=== PATIENT | female | born 1960 | race Caucasian/White ===

== ENCOUNTER 2018-09-06 16:35 | Inpatient (IN) | payer MEDICAID ==
[~2018-09-06] VITALS: Ht 149.9 cm; Wt 63.8 kg
[2018-09-06] MEDS ORDERED: ALBUTEROL 0.083% (NEB) 2.5 MG/3 ML AMP HHN STA (16:49)
[2018-09-06] MEDS ORDERED: METHYLPREDNISOLONE 125 MG INJ IV ONE (17:00)
[2018-09-06] MEDS ORDERED: IPRATROPIUM (NEB) 0.5 MG/2.5 ML AMP INH ONE (17:00)
[2018-09-06] MEDS ORDERED: SIMV20TA PO (17:27)
[2018-09-06] MEDS ORDERED: ALBU8.5H8 INH (17:27)
[2018-09-06] MEDS ORDERED: GUAI-173 PO (17:28)
[2018-09-06] MEDS ORDERED: LOSA25TA12 PO (17:28)
[2018-09-06] MEDS ORDERED: AZIT250T13 PO (17:29)
[2018-09-06] MEDS ORDERED: ONDANSETRON 4 MG INJ IV PRN ×2 (19:00→21:30)
[2018-09-06] MEDS ORDERED: ACETAMINOPHEN 325 MG TAB PO PRN ×2 (19:00→21:30)
[2018-09-06] MEDS ORDERED: SOD CHLORIDE 0.9% 100 ML ONE (19:01)
[2018-09-06] MEDS ORDERED: IOHEXOL 100 ML ONE (19:01)
--- NOTE | 2018-09-06 19:03 | ERD ---
ER Documentation Chief Complaint Chief Complaint cough, short of breath x3mths, taking abx no relief HPI Patient is a 57-year-old female with asthma and hypertension who presents with shortness of breath. She said that she has had shortness of breath for the past 3 months. She has been to the urgent care multiple times and has been given prednisone, pro-air, and Zithromax. The patient is not getting better. She did get a flu shot this year. She said that her primary doctor is Dr. Butcher. Upon review of old medical records this is the patient's first visit to the emergency department. ROS All systems reviewed and are negative except as per history of present illness. Medications Home Meds Reported Medications Azithromycin* (Azithromycin*) 250 Mg Tablet, 250 MG PO DAILY, #4 TAB FINISHED 09-05-18 09/06/18 Guaifenesin* (Tussin*) 100 Mg/5 Ml Syrup, 100 MG PO Q6 PRN for COUGH, ML 09/06/18 Losartan Potassium* (Losartan Potassium*) 25 Mg Tablet, 25 MG PO DAILY, TAB 09/06/18 Albuterol Sulfate* (Proair HFA*) 8.5 Gm Hfa.aer.ad, 2 PUFF INH Q4H PRN for WHEEZING AND SOB, #1 INHALER 09/06/18 Simvastatin* (Zocor*) 20 Mg Tablet, 20 MG PO QHS, #30 TAB 09/06/18 Allergies Allergies: Coded Allergies: No Known Allergy (Unverified , 09/06/18) PMhx/Soc Medical and Surgical Hx: pt denies Surgical Hx History of Surgery: No Anesthesia Reaction: No Hx Respiratory Disorders: Yes (Bronchitis,PNA) Hx Miscellaneous Medical Probl: Yes (HTN,High cholesterol) Hx Alcohol Use: No Hx Substance Use: No Hx Tobacco Use: No Smoking Status: Never smoker FmHx Family History: No diabetes Physical Exam Vitals Vital Signs Date Temp Pulse Resp B/P (MAP) Pulse Ox O2 O2 Flow FiO2 Time Delivery Rate 09/06/18 97 119/69 98 Room Air 18:34 (86) 09/06/18 Nasal 2 17:40 Cannula 09/06/18 Nasal 2.0 17:40 Cannula 09/06/18 76 26 98 Nasal 3.0 17:38 Cannula 09/06/18 98.7 94 20 198/84 97 16:37 (122) Physical Exam Const: Moderate distress Head: Atraumatic Eyes: Normal Conjunctiva ENT: Normal External Ears, Nose and Mouth. Neck: Full range of motion. No meningismus. Resp: Tachypnea and expiratory wheezing in all lung [place] Cardio: Regular rate and rhythm, no murmurs Abd: Soft, non tender, non distended. Normal bowel sounds Skin: No petechiae or rashes Back: No midline or flank tenderness Ext: No cyanosis, or edema Neur: Awake and alert Psych: Normal Mood and Affect Result Diagram: 09/06/18 1700 [id number]/06/[id number] Results 24 hrs Laboratory Tests Test 09/06/18 17:00 09/06/18 17:21 White Blood Count 7.8 10^3/ul Red Blood Count 4.15 10^6/ul Hemoglobin 12.4 g/dl Hematocrit 37.3 % Mean Corpuscular Volume 89.9 fl Mean Corpuscular Hemoglobin 29.9 pg Mean Corpuscular Hemoglobin Concent 33.2 g/dl Red Cell Distribution Width 13.1 % Platelet Count 245 10^3/UL Mean Platelet Volume 9.7 fl Immature Granulocytes % 0.300 % Neutrophils % 49.4 % Lymphocytes % 29.2 % Monocytes % 8.8 % Eosinophils % 11.7 % Basophils % 0.6 % Nucleated Red Blood Cells % 0.0 /100WBC Immature Granulocytes # 0.020 10^3/ul Neutrophils # 3.9 10^3/ul Lymphocytes # 2.3 10^3/ul Monocytes # 0.7 10^3/ul Eosinophils # 0.9 10^3/ul Basophils # 0.1 10^3/ul Nucleated Red Blood Cells # 0.0 10^3/ul D-Dimer 500.45 ng/ml D-Dimer Comment Sodium Level 142 mmol/L Potassium Level 3.8 mmol/L Chloride Level 108 mmol/L Carbon Dioxide Level 24 mmol/L Anion Gap 10 Blood Urea Nitrogen 10 mg/dl Creatinine 0.87 mg/dl Est Glomerular Filtrat Rate mL/min > 60 mL/min Glucose Level 119 mg/dl Calcium Level 9.7 mg/dl Troponin I < 0.012 ng/ml POC Venous Lactate 2.4 mmol/L Current Medications Medications Dose Sig/Nat Start Time Status Last (Trade) Ordered Route PRN Stop Time Admin Dose Reason Admin 125 mg ONCE ONCE 09/06/18 DC 09/06/18 Methylprednis IV 17:00 17:49 olone Sodium 09/06/18 17:01 Succinate (Solu-Medrol) Albuterol 5 mg ONCE STAT 09/06/18 DC 09/06/18 (Proventil HHN 16:49 17:37 0.083% (Neb)) 09/06/18 16:50 Ipratropium 0.5 mg ONCE ONCE 09/06/18 DC 09/06/18 [place] INH 17:00 17:37 (Atrovent 09/06/18 17:01 0.02% (Neb)) Ondansetron 4 mg BRIDGE ORDER 09/06/18 HCl (Zofran PRN IV 19:00 Inj) NAUSEA AND/OR 09/07/18 18:59 VOMITING 650 mg ER BRIDGE 09/06/18 Acetaminophen PRN PO MILD 19:00 (Tylenol PAIN(1-3)OR 09/07/18 18:59 Tab) ELEVATED TEMP Procedures/MDM EKG read by me: Rate/Rhythm: Regular rate and rhythm at a normal rate Intervals: Normal Impression: No evidence of ischemia or arrhythmia Chest x-ray negative per radiology. CT angiogram of the chest is pending. Patient is a 57-year-old female with asthma and hypertension who presents with status asthmaticus. She is persistently wheezing despite treatment with pro- air, prednisone, and Zithromax. There is no pneumonia or pneumothorax. D-dimer was slightly elevated so CTA will be done to rule out pulmonary embolism. The patient will be admitted to the care of Dr. Reynolds from the panel team to a medical surgical bed. Troponin is negative and I doubt acute coronary syndrome. I doubt pneumonia, pneumothorax, or aortic dissection. The patient was treated with Solu-Medrol, albuterol, and Atrovent in the emergency department. Lactic acid is elevated but I do not see any sign of serious bacterial infection or sepsis. Critical Care: Time: 35 minutes excluding all billable procedures. Treatments/Evaluations: Close monitoring and treatment of unstable vital signs, cardiorespiratory, and neurologic status, while maintaining tight balance of fluid, respiratory, and cardiac interventions. Departure Diagnosis: Primary Impression: Status asthmaticus Asthma severity: unspecified severity Asthma persistence: unspecified Qualified Codes: J45.902 - Unspecified asthma with status asthmaticus Additional Impression: Shortness of breath Condition: Fair LULU DIAZ MD Sep 06, 2018 19:03
[2018-09-06 20:42] VITALS: Ht 149.9 cm; Wt 63.8 kg
[2018-09-06 20:49] VITALS: BP 170/84; PULSE 103; RESP 20
--- NOTE | 2018-09-06 21:00 | NUR ---
RECEIVED PT FROM ER,ALERT AND ORIENTED. DENIES PAIN,VS STABLE. KEPT ON O2 @ 2L/NC WITH WHEEZES NOTED ;NO SOB AT THIS TIME THOUGH. KEPT IN COMFORTABLE POSITION. ORIENTED TO ROOM SET UP. NEEDS ATTENDED. CALL LIGHT WITHIN REACH.
[2018-09-06] MEDS ORDERED: NACL 0.9% 3 ML SYG IV SCH (21:30)
[2018-09-06] MEDS ORDERED: ALBUTEROL/IPRATROPIUM (NEB) 3 ML AMP HHN PRN (21:30)
[2018-09-06] MEDS ORDERED: ALBUTEROL HFA 8 GM INHALER INH PRN (21:30)
--- NOTE | 2018-09-06 22:49 | NUR ---
ELEVATED LACTIC ACID @ 4.6, MADE DR. DOUGLAS AWARE WITH ORDER TO REPEAT LACTIC ACID 4H AFTER THE LAST DRAW. WILL REVIEW PT'S PROFILE. PT ASYMPTOMATIC. WILL MONITOR. CN AWARE.
--- NOTE | 2018-09-06 23:51 | HP ---
Date/Time of Note Date/Time of Note DATE: 09/06/18 TIME: 23:51 Assessment/Plan VTE Prophylaxis Pharmacological prophylaxis: heparin Lines/Catheters IV Catheter Type (from Nrs): Saline Lock Assessment/Plan Hospital Course 1. Asthma exacerbation -Supplemental oxygen, bronchodilators and steroid 2. Lactic acidosis -Chest x-ray, CTPA and UA negative for infectious process -will follow-up on urine culture and blood culture results -Trend lactate 3. Hypertension: BP was in acceptable range. Continue home meds, adjust as needed 4. Dyslipidemia: Continue statin Result Diagram: 09/06/18 1700 09/06/18 1700 Results 24hrs Laboratory Tests Test 09/06/18 17:00 09/06/18 17:21 09/06/18 21:54 White Blood Count 7.8 Red Blood Count 4.15 L Hemoglobin 12.4 Hematocrit 37.3 Mean Corpuscular Volume 89.9 Mean Corpuscular Hemoglobin 29.9 Mean Corpuscular Hemoglobin Concent 33.2 Red Cell Distribution Width 13.1 Platelet Count 245 Mean Platelet Volume 9.7 Immature Granulocytes % 0.300 Neutrophils % 49.4 Lymphocytes % 29.2 Monocytes % 8.8 Eosinophils % 11.7 H Basophils % 0.6 Nucleated Red Blood Cells % 0.0 Immature Granulocytes # 0.020 Neutrophils # 3.9 Lymphocytes # 2.3 Monocytes # 0.7 Eosinophils # 0.9 H Basophils # 0.1 Nucleated Red Blood Cells # 0.0 D-Dimer 500.45 H D-Dimer Comment Sodium Level 142 Potassium Level 3.8 Chloride Level 108 Carbon Dioxide Level 24 Anion Gap 10 Blood Urea Nitrogen 10 Creatinine 0.87 Est Glomerular Filtrat Rate mL/min > 60 Glucose Level 119 Calcium Level 9.7 Troponin I < 0.012 POC Venous Lactate 2.4 *H Lactic Acid Level 4.6 *H HPI/ROS Admit Date/Time Admit Date/Time Sep 06, 2018 at 18:41 Hx of Present Illness This is a 57-year-old female with a history of hypertension, asthma, dyslipidemia who presented to ER complaining of shortness of breath and wheezing. She said her symptoms started about 3 months ago with associated cough occasionally productive of whitish sputum. She said she went to urgent care about 3 times and were given different medications at different times without improvement in her symptoms in fact, she said the antibiotic that she was given last time made her symptoms worse. She was diagnosed with asthma about a year ago. She had visited urgent care and ER but she was never hospitalized for asthma. When she presented to ER oxygen saturation 97% on room air. Influenza A and B were negative. Chest x-ray and CTPA without acute findings PMH/Family/Social Past Medical History Medical History: other (See HPI) Medications Current Medications IV Flush (NS 3 ml) 3 ml PER PROTOCOL IV ; Start 09/06/18 at 21:30 Ondansetron HCl (Zofran Inj) 4 mg Q6H PRN IV NAUSEA AND/OR VOMITING; Start 09/06/18 at 21:30 Acetaminophen (Tylenol Tab) 650 mg Q6H PRN PO PAIN LEVEL 1-3 OR FEVER; Start 09/06/18 at 21:30 Heparin Sodium (Porcine) (Heparin (5000 Units/1ml)) 5,000 unit Q12 SC ; Start 09/07/18 at 09:00 Albuterol/ Ipratropium (Duoneb) 3 ml Q2H RESP THERAPY PRN HHN SHORTNESS OF BREATH; Start 09/06/18 at 21:30 Albuterol (Ventolin Hfa) 2 puff Q4H PRN INH WHEEZING AND SOB; Start 09/06/18 at 21:30 Guaifenesin (Robitussin Liquid Cup) 100 mg Q6 PRN PO COUGH; Start 09/06/18 at 21:30 Atorvastatin Calcium (Lipitor) 10 mg DAILY@21 PO ; Start 09/07/18 at 21:00 Coded Allergies: No Known Allergy (Unverified , 09/06/18) Past Surgical History Past Surgical Hx: other (See HPI) Family History Significant Family History: no pertinent family hx Social History Alcohol Use: none Smoking Status: Never smoker Drug Use: none Exam/Review of Systems Vital Signs Vitals Vital Signs Date Temp Pulse Resp B/P (MAP) Pulse Ox O2 O2 Flow FiO2 Time Delivery Rate 09/06/18 99.0 103 20 170/84 98 Nasal 2.0 20:49 (112) Cannula Exam Constitutional: alert, oriented, well developed Head: normocephalic, atraumatic Eyes: EOMI, PERRL Respiratory: wheezing Cardiovascular: other (Tachycardic regular rhythm) Gastrointestinal: soft, non-tender Extremities: normal pulses ARAVIND DOUGLAS MD Sep 06, 2018 23:51
[2018-09-07] VITALS: BP 127/64; PULSE 100; RESP 18
[2018-09-07] MEDS: GUAIFENESIN 20 MG/ML 5ML CUP PO PRN (00:31)
[2018-09-07] MEDS ORDERED: SOD CHLORIDE 0.9% 500 ML IV ONE (02:00)
[2018-09-07 02:01] VITALS: BP 116/60; PULSE 101; RESP 18
[2018-09-07] MEDS: LEVOFLOXACIN 500MG/D5W (PMX) 100 ML IVPB SCH (03:29)
--- NOTE | 2018-09-07 05:12 | NUR ---
STILL ELEVATED LACTIC ACID,DR. DOUGLAS AWARE WITH ORDERS MADE AND CARRIED OUT. BOLUS OF NS 500 ML AND ANTIBIOTICS GIVEN. SPECIMEN FOR UA AND C/S SENT. CONTINUED WITH HHN. PT FEELS BETTER AT THIS TIME. IMPROVED WHEEZING. PROVIDED ASSISTANCE. CALL LIGHT WITHIN REACH.
[2018-09-07] MEDS: LEVALBUTEROL (NEB) 0.63 MG/3 ML AMP HHN SCH ×6 (05:19→20:36)
[2018-09-07 07:26] VITALS: BP 139/80; PULSE 103; RESP 20
[2018-09-07] MEDS ORDERED: IPRATROPIUM (NEB) 0.5 MG/2.5 ML AMP ONE (07:52)
[2018-09-07] MEDS: IPRATROPIUM (NEB) 0.5 MG/2.5 ML AMP HHN SCH ×4 (08:14→20:36)
[2018-09-07] MEDS: METHYLPREDNISOLONE 125 MG INJ IV SCH (08:34)
[2018-09-07] MEDS: HEPARIN 5,000 UNIT/1 ML VIAL SC SCH ×2 (08:35→21:47)
[2018-09-07 12:00] VITALS: BP 138/76; PULSE 108
--- NOTE | 2018-09-07 12:20 | NUR ---
Lactic acid 6.3. HARLEEN Johnson notified. Started IV fluids NS at 100 cc/h. No fever, VS within acceptable range.Will continue to monitor.
[2018-09-07] MEDS ORDERED: SOD CHLORIDE 0.9% 1,000 ML IV SCH (12:30)
[2018-09-07 14:19] VITALS: BP 148/78; PULSE 108; RESP 20
--- NOTE | 2018-09-07 14:44 | PN ---
Date/Time of Note Date/Time of Note DATE: 09/07/18 TIME: 14:43 Assessment/Plan VTE Prophylaxis Risk score (from Ns)>0 risk: 2 SCD applied (from Ns): Yes Pharmacological prophylaxis: heparin Lines/Catheters IV [facility]from [facility] Saline Lock Assessment/Plan Hospital Course SUBJECTIVE: Dyspnea improved. Continues to have a productive cough. OBJECTIVE: Physical Exam General: Adequately build 57 year-old female lying in bed in no apparent distress. HEENT: Normocephalic, atraumatic. Eyes: Anicteric sclerae, conjunctivae clear. ENT: Nasal septum midline, oral mucosa moist. Neck supple, no JVD noticed. Respiratory: Bilateral expiratory wheezing. Diminished breath sounds. No use of accessory muscles of respiration. . Cardiovascular: S1, S2 heard. No murmurs or gallops. Abdomen: Soft, nontender, and nondistended. Bowel sounds positive in all 4 quadrants. Genitourinary: Deferred. Extremities: No cyanosis, no clubbing, no edema. Peripheral pulses palpable. Neurologic: Cranial nerves II through XII grossly intact. The patient is awake, alert, and oriented. Skin: Normal skin turgor. No skin rashes. Labs & Vitals per chart ASSESSMENT & PLAN 57-year-old female with comorbidities including asthma, hypertension, and dyslipidemia who came to the emergency room with chief complaint of dyspnea. The patient was initially evaluated at outpatient clinic with minimal improvement in symptoms. Therefore, the patient was admitted to inpatient setting for further treatment and evaluation. 1. Asthma exacerbation. -Continue inhaled bronchodilators and inhaled anticholinergics. -Continue tapering dose of steroids. -Antibiotics for any underlying acute tracheobronchitis. 2. Lactic acidosis. -Most probably type B lactic acidosis. -Etiology unclear. -Possibly secondary to use of inhaled beta agonists. -Trend lactate levels. 3. Essential hypertension. -Continue antihypertensives. 4. Dyslipidemia. -On statins. -Will hold statins, if this is possibly contributing to the patient's underlying lactic acidosis. 5. Fluids, electrolytes, and nutrition. -Low-cholesterol diet. 6. DVT prophylaxis. -Subcutaneous heparin. 7. Plan. -Continue inhaled bronchodilators and anticholinergics. -Continue tapering dose of steroids. -Await clinical improvement. The patient was seen in collaboration with Dr. Christianson. Result Diagram: 09/07/18 0444 09/07/18 0444 Results 24hrs Laboratory Tests Test 09/06/18 17:00 09/06/18 17:21 09/06/18 21:54 09/07/18 01:14 White Blood Count 7.8 Red Blood Count 4.15 L Hemoglobin 12.4 Hematocrit 37.3 Mean Corpuscular 89.9 Volume Mean Corpuscular 29.9 Hemoglobin Mean Corpuscular 33.2 Hemoglobin Concen t Red Cell 13.1 Distribution Width Platelet Count 245 Mean Platelet 9.7 Volume Immature 0.300 Granulocytes % Neutrophils % 49.4 Lymphocytes % 29.2 Monocytes % 8.8 Eosinophils % 11.7 H Basophils % 0.6 Nucleated Red 0.0 Blood Cells % Immature 0.020 Granulocytes # Neutrophils # 3.9 Lymphocytes # 2.3 Monocytes # 0.7 Eosinophils # 0.9 H Basophils # 0.1 Nucleated Red 0.0 Blood Cells # D-Dimer 500.45 H D-Dimer Comment Sodium Level 142 Potassium Level 3.8 Chloride Level 108 Carbon Dioxide 24 Level Anion Gap 10 Blood Urea 10 Nitrogen Creatinine 0.87 Est Glomerular > 60 Filtrat Rate mL/min Glucose Level 119 Calcium Level 9.7 Troponin I < 0.012 POC Venous 2.4 *H Lactate Lactic Acid Level 4.6 *H 4.9 *H Test 09/07/18 02:20 09/07/18 04:44 09/07/18 11:24 09/07/18 12:15 Urine Color YELLOW Urine Clarity CLEAR Urine pH 5.0 Urine Specific 1.038 H [place] Urine Ketones TRACE A Urine Nitrite NEGATIVE Urine Bilirubin NEGATIVE Urine NEGATIVE Urobilinogen Urine Leukocyte NEGATIVE Esterase Urine Microscopic 1 RBC Urine Microscopic 0 WBC Urine Bacteria FEW A Urine Hemoglobin 1+ H Urine Glucose 3+ H Urine Total NEGATIVE Protein White Blood Count 6.0 # Red Blood Count 4.15 L Hemoglobin 12.6 Hematocrit 37.3 Mean Corpuscular 89.9 Volume Mean Corpuscular 30.4 Hemoglobin Mean Corpuscular 33.8 Hemoglobin Concen t Red Cell 13.4 Distribution Width Platelet Count 233 Mean Platelet 10.3 Volume Immature 0.500 H Granulocytes % Neutrophils % 85.2 H Lymphocytes % 13.6 L Monocytes % 0.5 Eosinophils % 0.0 Basophils % 0.2 Nucleated Red 0.0 Blood Cells % Immature 0.030 Granulocytes # Neutrophils # 5.1 Lymphocytes # 0.8 Monocytes # 0.0 L Eosinophils # 0.0 Basophils # 0.0 Nucleated Red 0.0 Blood Cells # Sodium Level 139 Potassium Level 4.1 Chloride Level 106 Carbon Dioxide 20 L Level Anion Gap 13 Blood Urea 11 Nitrogen Creatinine 0.75 Est Glomerular > 60 Filtrat Rate mL/min Glucose Level 169 Lactic Acid Level 4.1 *H 6.3 *H Calcium Level 9.9 Phosphorus Level 3.5 Magnesium Level 2.0 Total Bilirubin 0.1 L Direct Bilirubin 0.00 Indirect 0.1 Bilirubin Aspartate Amino 32 Transf (AST/SGOT) Alanine 26 Aminotransferase (ALT/SGPT) Alkaline 61 Phosphatase Total Protein 8.1 Albumin 4.7 Globulin 3.40 H Albumin/Globulin 1.38 Ratio Blood Gas Blood arterial Specimen Source Arterial Blood 09/07/2018 1:10:2 Date Drawn 5 PM Arterial Blood pH 7.434 (Temp corrected) Arterial Blood 30.7 L pCO2 (Temp correct) Arterial Blood 63.2 L pO2 (Temp corrected) Arterial Blood 20.1 L HCO3 Arterial Blood -3.1 L Base Excess Arterial Blood 93.2 L Oxygen Saturation Emmanuel Test ACCEPTAB Arterial Blood Left Radial Gas Puncture Site Arterial 0.3 Blood Carboxyhemo globin Arterial Blood 0.3 Methemoglobin Blood Gas A-a O2 49.8 H Differential Oxyhemoglobin 92.6 L Percent Blood Gas 37.0 Temperature Blood Gas ROOM AIR Modality FiO2 21.0 Blood Gas TM Notified Whom Blood Gas 09/07/2018 1:19:5 Notified Time 5 PM Exam/Review of Systems Vital Signs Vitals Vital Signs Date Temp Pulse Resp B/P (MAP) Pulse Ox O2 O2 Flow FiO2 Time Delivery Rate 09/07/18 94 Nasal 13:43 Cannula 09/07/18 90 18 21 13:00 09/07/18 98.3 138/76 12:00 (96) Intake and Output 09/06/18 09/06/18 09/07/18 1515:00 23:00 07:00 IntakeIntake Total 240 ml 700 ml BalanceBalance 240 ml 700 ml Medications Medications Current Medications IV Flush (NS 3 ml) 3 ml PER PROTOCOL IV ; Start 09/06/18 at 21:30 Ondansetron HCl (Zofran Inj) 4 mg Q6H PRN IV NAUSEA AND/OR VOMITING; Start 09/06/18 at 21:30 Acetaminophen (Tylenol Tab) 650 mg Q6H PRN PO PAIN LEVEL 1-3 OR FEVER; Start 09/06/18 at 21:30 Heparin Sodium (Porcine) (Heparin (5000 Units/1ml)) 5,000 unit Q12 SC Last administered on 09/07/18at 08:35; Admin Dose 5,000 UNIT; Start 09/07/18 at 09:00 Albuterol/ Ipratropium (Duoneb) 3 ml Q2H RESP THERAPY PRN HHN SHORTNESS OF BREATH Last administered on 09/06/18at 23:52; Admin Dose 3 ML; Start 09/06/18 at 21:30 Albuterol (Ventolin Hfa) 2 puff Q4H PRN INH WHEEZING AND SOB; Start 09/06/18 at 21:30 Guaifenesin (Robitussin Liquid Cup) 100 mg Q6 PRN PO COUGH Last administered on 09/07/18 00:31; Admin Dose 100 MG; Start 09/06/18 at 21:30 Levalbuterol (Xopenex Neb) 0.63 mg Q4H RESP THERAPY HHN Last administered on 09/07/18at 12:58; Admin Dose 0.63 MG; Start 09/07/18 at 01:00 Ipratropium [place] (Atrovent 0.02% (Neb)) 0.5 mg Q4HWA RESP THERAPY HHN Last administered on 09/07/18 12:58; Admin Dose 0.5 MG; Start 09/07/18 at 09:00 Levofloxacin/ Dextrose 100 ml @ 100 mls/hr Q24H IVPB Last administered on 09/07/18 03:29; Admin Dose 100 MLS/HR; Start 09/07/18 at 02:00 Methylprednisolone Sodium Succinate (Solu-Medrol) 80 mg DAILY IV Last administered on 09/07/18 08:34; Admin Dose 80 MG; Start 09/07/18 at 09:00 Sodium Chloride 1,000 ml @ 100 mls/hr Q10H IV Last administered on 09/07/18at 12:47; Admin Dose 100 MLS/HR; Start 09/07/18 at 12:30; Stop 09/07/18 at 22:29 ROLANDO MONTE NP Sep 07, 2018 14:44
--- NOTE | 2018-09-07 16:49 | NUR ---
Lactic acid 4.6, Alex Nicole , [employer] DIVER notified. No new orders, patient is already on IV fluuds, on IV antibiotics. No fever, VS within acceptble range. Will continue to monitor.
[2018-09-07 19:58] VITALS: BP 145/72; PULSE 95; RESP 18
[2018-09-07] MEDS ORDERED: ATORVASTATIN 10 MG TAB PO SCH (21:00)
[2018-09-07] MEDS: AL HYDROX/MG HYDROX/SIMETH 30 ML CUP PO PRN (22:37)
[2018-09-07] MEDS: PANTOPRAZOLE (EC) 40 MG TAB PO SCH (22:37)
[2018-09-08] MEDS ORDERED: SOD CHLORIDE 0.9% 1,000 ML IV ONE (00:30)
[2018-09-08 01:33] VITALS: BP 116/72; PULSE 87; RESP 18
[2018-09-08] MEDS: LEVALBUTEROL (NEB) 0.63 MG/3 ML AMP HHN SCH ×6 (01:42→21:04)
[2018-09-08] MEDS: LEVOFLOXACIN 500MG/D5W (PMX) 100 ML IVPB SCH (02:37)
[2018-09-08] MEDS: GUAIFENESIN 20 MG/ML 5ML CUP PO PRN ×2 (03:54→20:43)
[2018-09-08] MEDS: AL HYDROX/MG HYDROX/SIMETH 30 ML CUP PO PRN ×2 (03:54→20:43)
--- NOTE | 2018-09-08 06:52 | NUR ---
re: shift note patient is alert and oriented, vss, no signs of distress noted. prn cough medication and mylanta given for acid reflux. lactic acid 5.0, bolus of ns given, pending recheck this am. good urine out. remains free from injury and falls. will continue to monitor.
[2018-09-08] MEDS: PANTOPRAZOLE (EC) 40 MG TAB PO SCH (07:02)
[2018-09-08 07:31] VITALS: BP 139/70; PULSE 89; RESP 20
[2018-09-08] MEDS: IPRATROPIUM (NEB) 0.5 MG/2.5 ML AMP HHN SCH ×4 (07:42→21:04)
--- NOTE | 2018-09-08 07:47 | NUR ---
re: lactic acid lactic acid trending down after bolus of ns. Dr. Boss notified of am lactic acid, repeat ordered at 10am.
[2018-09-08] MEDS: LOSARTAN 25 MG TAB PO SCH (08:58)
[2018-09-08] MEDS: METHYLPREDNISOLONE 125 MG INJ IV SCH (08:59)
[2018-09-08] MEDS: HEPARIN 5,000 UNIT/1 ML VIAL SC SCH ×2 (09:01→20:38)
--- NOTE | 2018-09-08 10:53 | CONS ---
Date/Time of Note Date/Time of Note DATE: 09/08/18 TIME: 10:49 Assessment/Plan Assessment/Plan Assessment/Plan Chest x-ray is unremarkable. Assessment recommendations; next 1. Patient admitted with a 3-month history of chest congestion and wheezing likely post viral bronchitis. 2. History of hypertension. Discontinue current Solu-Medrol dosing. Start Solu-Medrol 40 mg every 6 hours. Add Pulmicort 0.5 mg twice daily. Discontinue Levaquin and start oral Zithromax 500 mg daily. Continue current broncho dilator regimen. Result Diagram: 09/08/18 0514 09/08/1814 Results 24hrs Laboratory Tests Test 09/07/18 11:24 09/07/18 12:15 09/07/18 16:04 09/07/18 23:41 Lactic Acid Level 6.3 *H 4.6 *H 5.0 *H Blood Gas Blood arterial Specimen Source Arterial Blood 09/07/2018 1:10:2 Date Drawn 5 PM Arterial Blood pH 7.434 (Temp corrected) Arterial Blood 30.7 L pCO2 (Temp correct) Arterial Blood 63.2 L pO2 (Temp corrected) Arterial Blood 20.1 L HCO3 Arterial Blood -3.1 L Base Excess Arterial Blood 93.2 L Oxygen Saturation Emmanuel Test ACCEPTAB Arterial Blood Left Radial Gas Puncture Site Arterial 0.3 Blood Carboxyhemo globin Arterial Blood 0.3 Methemoglobin Blood Gas A-a O2 49.8 H Differential Oxyhemoglobin 92.6 L Percent Blood Gas 37.0 Temperature Blood Gas ROOM AIR Modality FiO2 21.0 Blood Gas TM Notified Whom Blood Gas 09/07/2018 1:19:5 Notified Time 5 PM Test 09/08/18 05:14 09/08/18 10:00 White Blood Count 16.4 #H Red Blood Count 3.72 L Hemoglobin 11.1 L Hematocrit 33.9 L Mean Corpuscular 91.1 Volume Mean Corpuscular 29.8 Hemoglobin Mean Corpuscular 32.7 Hemoglobin Concen t Red Cell 13.8 Distribution Width Platelet Count 233 Mean Platelet 10.0 Volume Immature 0.800 H Granulocytes % Neutrophils % 82.0 H Lymphocytes % 9.2 L Monocytes % 7.9 Eosinophils % 0.0 Basophils % 0.1 Nucleated Red 0.0 Blood Cells % Immature 0.130 H Granulocytes # Neutrophils # 13.4 H Lymphocytes # 1.5 Monocytes # 1.3 H Eosinophils # 0.0 Basophils # 0.0 Nucleated Red 0.0 Blood Cells # Sodium Level 143 Potassium Level 4.1 Chloride Level 112 H Carbon Dioxide 21 Level Anion Gap 10 Blood Urea 15 Nitrogen Creatinine 0.71 Est Glomerular > 60 Filtrat Rate mL/min Glucose Level 153 Lactic Acid Level 3.6 *H 4.8 *H Calcium Level 9.5 Phosphorus Level 2.7 Magnesium Level 2.2 Consultation Date/Type/Reason Admit Date/Time Sep 06, 2018 at 18:41 Date of Consultation: Sep 08, 2018 Type of Consult Pulmonary Patient is a very pleasant 57-year-old lady who came into the hospital with a 3- month history of coughing chest congestion wheezing and very scant sputum production. According to her she was fine until symptoms started 3 months ago. Patient denies any acute illness like episodes of high fever, body aches myalgias to suggest any viral infection. After being admitted patient has been started on appropriate bronchodilator regimen with significant improvement in symptoms. She still complains of coughing chest congestion. Denies any sinus symptoms, postnasal drip. Any fever or chills. Past medical history; 1. History of hypertension. 2. No history of any asthma. Medications; reviewed. Allergies; none. Social history; no show any smoking. Occupational history; patient is a information tech. PET/hobbies; patient has a dog in the house. Family history; she is , no show any illnesses in the family. Review of systems; denies any headache, sinus symptoms. Any sore throat. Any chest pain. Denies any wheezing. Complains of cough and chest congestion. Complains of scant white sputum production. Denies any high fever, chills, body aches or myalgias. Denies any abdominal pain, acid reflux. Any diarrhea, melena any urinary symptoms. Any orthopnea. Any edema. Complains of minimal shortness of breath upon exertion. Denies any weight loss. General exam; middle-aged female, awake alert, currently in no distress. Past Medical History Medical History: other (See HPI) Medications Current Medications IV Flush (NS 3 ml) 3 ml PER PROTOCOL IV ; Start 09/06/18 at 21:30 Ondansetron HCl (Zofran Inj) 4 mg Q6H PRN IV NAUSEA AND/OR VOMITING; Start 1/20/19 at 21:30 Acetaminophen (Tylenol Tab) 650 mg Q6H PRN PO PAIN LEVEL 1-3 OR FEVER; Start 09/06/18 at 21:30 Heparin Sodium (Porcine) (Heparin (5000 Units/1ml)) 5,000 unit Q12 SC Last administered on 09/08/18 09:01; Admin Dose 5,000 UNIT; Start 09/07/18 at 09:00 Albuterol/ Ipratropium (Duoneb) 3 ml Q2H RESP THERAPY PRN HHN SHORTNESS OF BREATH Last administered on 09/06/18 23:52; Admin Dose 3 ML; Start 09/06/18 at 21:30 Albuterol (Ventolin Hfa) 2 puff Q4H PRN INH WHEEZING AND SOB; Start 09/06/18 at 21:30 Guaifenesin (Robitussin Liquid Cup) 100 mg Q6 PRN PO COUGH Last administered on 09/08/18 03:54; Admin Dose 100 MG; Start 09/06/18 at 21:30 Levalbuterol (Xopenex Neb) 0.63 mg Q4H RESP THERAPY HHN Last administered on 09/08/18 07:42; Admin Dose 0.63 MG; Start 09/07/18 at 01:00 Ipratropium [place] (Atrovent 0.02% (Neb)) 0.5 mg Q4HWA RESP THERAPY HHN Last administered on 09/08/18 07:42; Admin Dose 0.5 MG; Start 09/07/18 at 09:00 Levofloxacin/ Dextrose 100 ml @ 100 mls/hr Q24H IVPB Last administered on 09/08/18 02:37; Admin Dose 100 MLS/HR; Start 09/07/18 at 02:00 Methylprednisolone Sodium Succinate (Solu-Medrol) 80 mg DAILY IV Last administered on 09/08/18 08:59; Admin Dose 80 MG; Start 09/07/18 at 09:00 Losartan Potassium (Cozaar) 25 mg DAILY PO Last administered on 09/08/18 08:58; Admin Dose 25 MG; Start 09/08/18 at 09:00 Pantoprazole (Protonix Tab) 40 mg DAILY@06 PO Last administered on 09/08/18 07:02; Admin Dose 40 MG; Start 09/07/18 at 22:30 Al Hydrox/Mg Hydrox/Simethicone (Mag-Al Plus) 30 ml Q4H PRN PO GASTROINTESTINAL UPSET Last administered on 09/08/18at 03:54; Admin Dose 30 ML; Start 09/07/18 at 22:30 Allergies: Coded Allergies: No Known Allergy (Unverified , 09/06/18) Past Surgical History Past Surgical Hx: other (See HPI) Social History Alcohol Use: none Smoking Status: Never smoker Drug Use: none Exam/Review of Systems Vital Signs Vitals Vital Signs Date Temp Pulse Resp B/P (MAP) Pulse Ox O2 O2 Flow FiO2 Time Delivery Rate 09/08/18 Nasal 2.0 09:00 Cannula 09/08/18 81 18 96 07:42 09/08/18 97.6 139/70 07:31 (93) 09/07/18 27 20:36 Intake and Output 09/07/18 09/07/18 09/08/18 1515:00 23:00 07:00 IntakeIntake Total 960 ml 1720 ml 1618 ml OutputOutput Total 300 ml BalanceBalance 660 ml 1720 ml 1618 ml Exam H HEENT exam; supple neck, no JVD. No lymphadenopathy. Midline trachea. No th yromegaly. Patient has fair dentition. No sinus tenderness. Nasal mucosa is moist without any inflammation. Pharynx is clear. Pupils are midsize and reactive to light. Chest exam; diminished breath sounds bilaterally with mildly prolonged expiratory phase. No wheezing. S1-S2 audible, no murmurs. Regular rhythm. Abdomen exam; soft, no organomegaly. Nontender. Bowel sounds audible. Extremity exam; peripheral edema clubbing. Pulses 1+. CABLE DRILLER exam; no focal deficit. Medications Medications Current Medications IV Flush (NS 3 ml) 3 ml PER PROTOCOL IV ; Start 09/06/18 at 21:30 Ondansetron HCl (Zofran Inj) 4 mg Q6H PRN IV NAUSEA AND/OR VOMITING; Start 09/06/18 at 21:30 Acetaminophen (Tylenol Tab) 650 mg Q6H PRN PO PAIN LEVEL 1-3 OR FEVER; Start 09/06/18 at 21:30 Heparin Sodium (Porcine) (Heparin (5000 Units/1ml)) 5,000 unit Q12 SC Last administered on 09/08/18 09:01; Admin Dose 5,000 UNIT; Start 09/07/18 at 09:00 Albuterol/ Ipratropium (Duoneb) 3 ml Q2H RESP THERAPY PRN HHN SHORTNESS OF BREATH Last administered on 09/06/18 23:52; Admin Dose 3 ML; Start 09/06/18 at 21:30 Albuterol (Ventolin Hfa) 2 puff Q4H PRN INH WHEEZING AND SOB; Start 09/06/18 at 21:30 Guaifenesin (Robitussin Liquid Cup) 100 mg Q6 PRN PO COUGH Last administered on 09/08/18 03:54; Admin Dose 100 MG; Start 09/06/18 at 21:30 Levalbuterol (Xopenex Neb) 0.63 mg Q4H RESP THERAPY HHN Last administered on 09/08/18 07:42; Admin Dose 0.63 MG; Start 09/07/18 at 01:00 Ipratropium [place] (Atrovent 0.02% (Neb)) 0.5 mg Q4HWA RESP THERAPY HHN Last administered on 09/08/18 07:42; Admin Dose 0.5 MG; Start 09/07/18 at 09:00 Levofloxacin/ Dextrose 100 ml @ 100 mls/hr Q24H IVPB Last administered on 09/08/18 02:37; Admin Dose 100 MLS/HR; Start 09/07/18 at 02:00 Methylprednisolone Sodium Succinate (Solu-Medrol) 80 mg DAILY IV Last administered on 09/08/18 08:59; Admin Dose 80 MG; Start 09/07/18 at 09:00 Losartan Potassium (Cozaar) 25 mg DAILY PO Last administered on 09/08/18 08:58; Admin Dose 25 MG; Start 09/08/18 at 09:00 Pantoprazole (Protonix Tab) 40 mg DAILY@06 PO Last administered on 09/08/18 07:02; Admin Dose 40 MG; Start 09/07/18 at 22:30 Al Hydrox/Mg Hydrox/Simethicone (Mag-Al Plus) 30 ml Q4H PRN PO GASTROINTESTINAL UPSET Last administered on 09/08/18 03:54; Admin Dose 30 ML; Start 09/07/18 at 22:30 NOVA ROSADO Sep 08, 2018 10:53
[2018-09-08] MEDS: METHYLPREDNISOLONE 40 MG INJ IV SCH ×2 (12:31→18:08)
--- NOTE | 2018-09-08 12:36 | PN ---
Date/Time of Note Date/Time of Note DATE: 09/08/18 TIME: 12:35 Assessment/Plan VTE Prophylaxis Risk score (from Ns)>0 risk: 2 SCD applied (from Ns): Yes Pharmacological prophylaxis: heparin Lines/Catheters IV C[facility]ter Type [facility]from [facility] [place] Assessment/Plan Hospital Course SUBJECTIVE: Dyspnea improved. Continues to have a productive cough. OBJECTIVE: Physical Exam General: Adequately build 57 year-old female lying in bed in no apparent distress. HEENT: Normocephalic, atraumatic. Eyes: Anicteric sclerae, conjunctivae clear. ENT: Nasal septum midline, oral mucosa moist. Neck supple, no JVD noticed. Respiratory: Diminished breath sounds. No use of accessory muscles of respiration. . Cardiovascular: S1, S2 heard. No murmurs or gallops. Abdomen: Soft, nontender, and nondistended. Bowel sounds positive in all 4 quadrants. Genitourinary: Deferred. Extremities: No cyanosis, no clubbing, no edema. Peripheral pulses palpable. Neurologic: Cranial nerves II through XII grossly intact. The patient is awake, alert, and oriented. Skin: Normal skin turgor. No skin rashes. Labs & Vitals per chart ASSESSMENT & PLAN 57-year-old female with comorbidities including asthma, hypertension, and dyslipidemia who came to the emergency room with chief complaint of dyspnea. The patient was initially evaluated at outpatient clinic with minimal improvement in symptoms. Therefore, the patient was admitted to inpatient setting for further treatment and evaluation. 1. Asthma exacerbation. -Continue inhaled bronchodilators and inhaled anticholinergics. -Continue tapering dose of steroids. -Antibiotics for any underlying acute tracheobronchitis. -Pulmonology following. 2. Lactic acidosis. -Most probably type B lactic acidosis. -Etiology unclear. -Possibly secondary to use of inhaled beta agonists. -Trend lactate levels. 3. Essential hypertension. -Continue antihypertensives. 4. Dyslipidemia. -On statins. -Will hold statins, if this is possibly contributing to the patient's underlying lactic acidosis. 5. Fluids, electrolytes, and nutrition. -Low-cholesterol diet. 6. DVT prophylaxis. -Subcutaneous heparin. 7. Plan. -Continue inhaled bronchodilators and anticholinergics. -Continue tapering dose of steroids. -Await clinical improvement. The patient was seen in collaboration with Dr. Christianson. Result Diagram: 09/08/18 0514 09/08/18 0514 Results 24hrs Laboratory Tests Test 09/07/18 16:04 09/07/18 23:41 09/08/18 05:14 09/08/18 10:00 Lactic Acid Level 4.6 *H 5.0 *H 3.6 *H 4.8 *H White Blood Count 16.4 #H Red Blood Count 3.72 L Hemoglobin 11.1 L Hematocrit 33.9 L Mean Corpuscular 91.1 Volume Mean Corpuscular 29.8 Hemoglobin Mean Corpuscular 32.7 Hemoglobin Concent Red Cell 13.8 Distribution Width Platelet Count 233 Mean Platelet Volume 10.0 Immature 0.800 H Granulocytes % Neutrophils % 82.0 H Lymphocytes % 9.2 L Monocytes % 7.9 Eosinophils % 0.0 Basophils % 0.1 Nucleated Red Blood 0.0 Cells % Immature 0.130 H Granulocytes # Neutrophils # 13.4 H Lymphocytes # 1.5 Monocytes # 1.3 H Eosinophils # 0.0 Basophils # 0.0 Nucleated Red Blood 0.0 Cells # Sodium Level 143 Potassium Level 4.1 Chloride Level 112 H Carbon Dioxide Level 21 Anion Gap 10 Blood Urea Nitrogen 15 Creatinine 0.71 Est Glomerular > 60 Filtrat Rate mL/min Glucose Level 153 Calcium Level 9.5 Phosphorus Level 2.7 Magnesium Level 2.2 Exam/Review of Systems Vital Signs Vitals Vital Signs Date Temp Pulse Resp B/P (MAP) Pulse Ox O2 O2 Flow FiO2 Time Delivery Rate 09/08/18 Nasal 2.0 09:00 Cannula 09/08/18 81 18 96 07:42 09/08/18 97.6 139/70 07:31 (93) 09/07/18 27 20:36 Intake and Output 09/07/18 09/07/18 09/08/18 1515:00 23:00 07:00 IntakeIntake Total 960 ml 1720 ml 1618 ml OutputOutput Total 300 ml BalanceBalance 660 ml 1720 ml 1618 ml Medications Medications Current Medications IV Flush (NS 3 ml) 3 ml PER PROTOCOL IV ; Start 09/06/18 at 21:30 Ondansetron HCl (Zofran Inj) 4 mg Q6H PRN IV NAUSEA AND/OR VOMITING; Start 09/06/18 at 21:30 Acetaminophen (Tylenol Tab) 650 mg Q6H PRN PO PAIN LEVEL 1-3 OR FEVER; Start 09/06/18 at 21:30 Heparin Sodium (Porcine) (Heparin (5000 Units/1ml)) 5,000 unit Q12 SC Last administered on 09/08/18 09:01; Admin Dose 5,000 UNIT; Start 09/07/18 at 09:00 Albuterol/ Ipratropium (Duoneb) 3 ml Q2H RESP THERAPY PRN HHN SHORTNESS OF BREATH Last administered on 09/06/18 23:52; Admin Dose 3 ML; Start 09/06/18 at 21:30 Albuterol (Ventolin Hfa) 2 puff Q4H PRN INH WHEEZING AND SOB; Start 09/06/18 at 21:30 Guaifenesin (Robitussin Liquid Cup) 100 mg Q6 PRN PO COUGH Last administered on 09/08/18 03:54; Admin Dose 100 MG; Start 09/06/18 at 21:30 Levalbuterol (Xopenex Neb) 0.63 mg Q4H RESP THERAPY HHN Last administered on 09/08/18 07:42; Admin Dose 0.63 MG; Start 09/07/18 at 01:00 Ipratropium [place] (Atrovent 0.02% (Neb)) 0.5 mg Q4HWA RESP THERAPY HHN Last administered on 09/08/18 07:42; Admin Dose 0.5 MG; Start 09/07/18 at 09:00 Losartan Potassium (Cozaar) 25 mg DAILY PO Last administered on 09/08/18 08: 58; Admin Dose 25 MG; Start 09/08/18 at 09:00 Pantoprazole (Protonix Tab) 40 mg DAILY@06 PO Last administered on 09/08/18 07:02; Admin Dose 40 MG; Start 09/07/18 at 22:30 Al Hydrox/Mg Hydrox/Simethicone (Mag-Al Plus) 30 ml Q4H PRN PO GASTROINTESTINAL UPSET Last administered on 09/08/18 03:54; Admin Dose 30 ML; Start 09/07/18 at 22:30 Azithromycin (Zithromax) 500 mg DAILY PO ; Start 09/08/18 at 12:00 Methylprednisolone Sodium Succinate (Solu-Medrol) 40 mg Q6 IV ; Start 09/08/18 at 12:00 Budesonide (Pulmicort (Neb)) 0.5 mg BID RESP THERAPY N ; Start 09/08/18 at 11:00 ROLANDO MONTE NP Sep 08, 2018 12:36
[2018-09-08] MEDS: BUDESONIDE (NEB) 0.5MG/2ML AMP HHN SCH ×2 (13:28→21:04)
[2018-09-08] MEDS: AZITHROMYCIN 250 MG TAB PO SCH (13:34)
[2018-09-08 14:06] VITALS: BP 147/77; PULSE 91; RESP 20
--- NOTE | 2018-09-08 18:24 | NUR ---
End of shift summary: Pt alert and oriented X4, able to ambulate by self, able to communicate needs. No c/o pain or distress during the shift. Lactic acid trending up. ASSOCIATE PRODUCT MANAGER Alex was made aware. Dr Tripp's consult obtained. No new orders as of now. Continue to monitor.
--- NOTE | 2018-09-08 18:57 | CONS ---
DATE OF ADMISSION: 09/06/2018 DATE OF CONSULTATION: 09/08/2018 TYPE OF CONSULTATION: Nephrology. REASON FOR CONSULTATION: Lactic acidosis. PHYSICIAN REQUESTING CONSULT: Alex Nicole NP HISTORY OF PRESENT ILLNESS: This is a 57-year-old female with a past medical history of hypertension , history of asthma, dyslipidemia, presented to [facility] Emergency Room with shortness of breath, wheezing. The patient stated her symptoms started about 3 months ago with cough with whitish sputum. The patient says she went to urgent care multiple times and was given antibiotics without s ignificant improvement. As a result, the patient came to emergency room. Upon arrival, the patient was saturating 97% on room air. The patient had a chest x-ray, CT angio that showed no acute finding . The patient was subsequently admitted to med/surg and placed on steroids, beta agonist with margin al improvement in symptoms. The patient continues to have shortness of breath. In terms of the patient's lactic acidosis History, on admission the patient was noted to have lactic acidosis of 4.6, which is hovered between 4 and 6 millimoles per liter. The patient has been given I V fluids without significant change in lactic acidosis. An ABG was performed which showed the patien t is compensated. The patient herself denies any prior history of cancer. Denies any history of HIV . Denies any new medication use. Denies any diarrhea. Denies any history of diabetes. PAST MEDICAL HISTORY: As stated above, history of asthma, history of hypertension. FAMILY HISTORY: No family history of kidney disease. SOCIAL HISTORY: Does not drink, smoke, do drugs. MEDICATIONS: Have been reviewed. REVIEW OF SYSTEMS: A 14-point review of system was conducted and pertinent positives stated in HPI, otherwise negative. ALLERGIES: NO KNOWN DRUG ALLERGIES. PHYSICAL EXAMINATION: VITAL SIGNS: Blood pressure is 147/77, respirations 20, pulse 91, temperature 97.7. HEENT: Head is normocephalic. Pupils are reactive to light. NECK: Supple. HEART: Regular rate. LUNGS: Show diminished breath sounds at the base. Positive wheezes. ABDOMEN: Soft, nontender to palpation without rebound or guarding. EXTREMITIES: Negative for clubbing, cyanosis. No edema. DERMATOLOGIC: No rashes. MUSCULOSKELETAL: No joint effusion. NEUROLOGIC: No focal deficits. LABORATORY DATA: Show sodium 143, potassium 4.1. Lactic acid level of 4.9. ASSESSMENT AND PLAN: This is a 57-year-old female who presents with problem: 1. Lactic acidosis. Etiology is likely due to type B lactic acidosis, i.e. possibly from asthma exa cerbation and use of beta adrenergic agonist i.e. albuterol. Asthma in conjunction with beta agonist can produce bronchospasm which has been shown in the past to calm lactic acidosis. Other possibilit ies include mitochondrial dysfunction or possible underlying malignancy. The patient's CT scan of th e chest however shows no evidence of adenopathy. Recommendation would be to continue medical m anagement. Consider deescalating beta agonist if possible. We would recommend age appropriate cance r screening. Less likely for patient to have type A lactic acidosis given hemodynamically stable. W e will continue to monitor closely. 2. Asthma exacerbation. The patient currently is on inhaled bronchodilators, steroids. Continue me dical management. Consider tapering down bronchodilators if possible. 3. Hypertension. Continue blood pressure regimen. 4. Dyslipidemia. Continue to monitor. 5. Gastrointestinal and deep venous thrombosis prophylaxis. Thank you, Rudy, for this interesting consult. It will be a pleasure to follow patient with you t jessikaout the hospital course. Dictated By: HEIDY WEBB DO NR/NTS Conf#: [id number] DID#: [id number] CC: ARAVIND DOUGLAS MD;*EndCC*
[2018-09-08 19:37] VITALS: BP 154/74; PULSE 93; RESP 18
[2018-09-09] MEDS: METHYLPREDNISOLONE 40 MG INJ IV SCH ×4 (00:02→18:08)
[2018-09-09] MEDS: LEVALBUTEROL (NEB) 0.63 MG/3 ML AMP HHN SCH ×5 (00:55→19:42)
[2018-09-09 02:09] VITALS: BP 140/67; PULSE 92; RESP 18
--- NOTE | 2018-09-09 05:07 | NUR ---
EOSS: Patient remains stable. No complaints of SOB or any discomfort noted. Instructed patient to use call light when assistance is needed. Will endorse to morning nurse for continuity of care.
[2018-09-09] MEDS: PANTOPRAZOLE (EC) 40 MG TAB PO SCH (05:40)
--- NOTE | 2018-09-09 06:32 | NUR ---
Informed Dr. Boss regarding patients lactic acid this AM which was 3.7, down from yesterday which was 4.9. Patient is persistent elevated lactic acid, asymptomatic and no sepsis risk. Dr. Boss ordered 500cc NS bolus x1 and repeat lactic at noon.
[2018-09-09] MEDS ORDERED: SOD CHLORIDE 0.9% 500 ML IV ONE (07:00)
[2018-09-09 08:24] VITALS: BP 167/80; PULSE 85; RESP 18
--- NOTE | 2018-09-09 09:01 | PN ---
DATE: 09/09/2018 SUBJECTIVE: The patient continues to have ongoing wheezing. Continue to receive aggressive nebulize rs. No other events noted. OBJECTIVE: VITAL SIGNS: Blood pressure is 140/67, respirations 18, pulse 92, temperature 98.7. HEENT: Head is normocephalic. NECK: Supple. HEART: Regular rate. LUNGS: Show diminished breath sounds at the base. ABDOMEN: Soft, nontender to palpation without rebound or guarding. EXTREMITIES: Negative for clubbing, cyanosis, no edema. DERMATOLOGIC: No rashes. MUSCULOSKELETAL: No joint effusion. NEUROLOGIC: No change in exam. MEDICATIONS: Reviewed. LABORATORY DATA: BMP within normal limits. Lactic acid 2.7. White count 13.1, hemoglobin 12.2, steve telet count is 223. ASSESSMENT AND PLAN: 1. Lactic acidosis. Etiology is likely secondary to type B, possibly from asthmatic exacerbation an d use of beta adrenergic agonist i.e. albuterol. The patient's lactic acid levels have fluctuated be tween 3 and 4. There has been no evidence of hemodynamic compromise. Low suspicion for a type A lac tic acidosis. Other possibilities for type B lactic acidosis, including myocardial dysfunction or un derlying malignancy. At this point, we would continue to treat underlying asthma. Consider deescala ting beta adrenergic i.e. albuterol if possible. I would also recommend age appropriate cancer scree bailee. Continue to monitor. 2. Asthma exacerbation. The patient is on inhaled bronchodilators, steroids. Continue medical tavia gement. Consider tapering down once the patient is clinically stable. 3. Hypertension. Continue current blood pressure regimen. 4. Dyslipidemia. Continue statin therapy. 5. Gastrointestinal and deep vein thrombosis prophylaxis. Dictated By: HEIDY WEBB DO NR/NTS Conf#: [id number] DID#: [id number] CC: ARAVIND DOUGLAS MD; HEIDY WEBB DO;*EndCC*
[2018-09-09] MEDS: AZITHROMYCIN 250 MG TAB PO SCH (09:07)
[2018-09-09] MEDS: LOSARTAN 25 MG TAB PO SCH (09:08)
[2018-09-09] MEDS: HEPARIN 5,000 UNIT/1 ML VIAL SC SCH ×2 (09:09→21:47)
[2018-09-09] MEDS: IPRATROPIUM (NEB) 0.5 MG/2.5 ML AMP HHN SCH ×4 (10:05→19:42)
[2018-09-09] MEDS: BUDESONIDE (NEB) 0.5MG/2ML AMP HHN SCH ×2 (10:05→19:42)
--- NOTE | 2018-09-09 10:28 | CONS ---
Assessment/Plan Assessment/Plan Assessment/Plan Assessment recommendations; 1. Patient admitted with 3-month history of cough and chest congestion and whe ezing without any prior history of asthma or chronic bronchitis. Clinically improving on current treatment regimen. Possibly post viral in etiology. 2. Stable hypertension. Continue current supportive care. Possible steroid taper in 24 hours as dictated by clinical status. Result Diagram: 09/09/18 0442 09/09/18 0442 Results 24hrs Laboratory Tests Test 09/08/18 15:44 09/09/18 04:42 Lactic Acid Level 4.9 *H 3.7 *H White Blood Count 13.1 #H Red Blood Count 4.07 L Hemoglobin 12.2 Hematocrit 36.9 L Mean Corpuscular Volume 90.7 Mean Corpuscular Hemoglobin 30.0 Mean Corpuscular Hemoglobin Concent 33.1 Red Cell Distribution Width 13.9 Platelet Count 223 Mean Platelet Volume 10.1 Immature Granulocytes % 0.900 H Neutrophils % 88.2 H Lymphocytes % 8.9 L Monocytes % 1.9 Eosinophils % 0.0 Basophils % 0.1 Nucleated Red Blood Cells % 0.0 Immature Granulocytes # 0.120 H Neutrophils # 11.6 H Lymphocytes # 1.2 Monocytes # 0.3 Eosinophils # 0.0 Basophils # 0.0 Nucleated Red Blood Cells # 0.0 Sodium Level 143 Potassium Level 4.3 Chloride Level 106 Carbon Dioxide Level 25 Anion Gap 12 Blood Urea Nitrogen 18 Creatinine 0.73 Est Glomerular Filtrat Rate mL/min > 60 Glucose Level 170 Calcium Level 9.9 Phosphorus Level 3.0 Magnesium Level 2.5 Consultation Date/Type/Reason Admit Date/Time Sep 06, 2018 at 18:41 Initial Consult Date 09/08/18 Type of Consult Pulmonary Patient is a very pleasant 57-year-old lady who came into the hospital with a 3- month history of coughing chest congestion wheezing and very scant sputum production. According to her she was fine until symptoms started 3 months ago. Patient denies any acute illness like episodes of high fever, body aches myalgias to suggest any viral infection. After being admitted patient has been started on appropriate bronchodilator regimen with significant improvement in symptoms. She still complains of coughing chest congestion. Denies any sinus symptoms, postnasal drip. Any fever or chills. Past medical history; 1. History of hypertension. 2. No history of any asthma. Medications; reviewed. Allergies; none. Social history; no show any smoking. Occupational history; patient is a resort housekeeper. PET/hobbies; patient has a dog in the house. Family history; she is , no show any illnesses in the family. Review of systems; denies any headache, sinus symptoms. Any sore throat. Any chest pain. Denies any wheezing. Complains of cough and chest congestion. Complains of scant white sputum production. Denies any high fever, chills, body aches or myalgias. Denies any abdominal pain, acid reflux. Any diarrhea, josiah daria any urinary symptoms. Any orthopnea. Any edema. Complains of minimal shortness of breath upon exertion. Denies any weight loss. General exam; middle-aged female, awake alert, currently in no distress. 24 HR Interval Summary Free Text/Dictation Patient's condition is improving gradually. Reports decreased chest congestion wheezing and cough. General exam; middle-aged female, awake alert, ambulatory in the room. Currently no distress. Exam/Review of Systems Vital Signs Vitals Vital Signs Date Temp Pulse Resp B/P (MAP) Pulse Ox O2 O2 Flow FiO2 Time Delivery Rate 09/09/18 92 16 98 Nasal 2.0 10:21 Cannula 09/09/18 98.5 167/80 08:24 (109) 09/07/18 27 20:36 Intake and Output 09/08/18 09/08/18 09/09/18 1515:00 23:00 07:00 IntakeIntake Total 1480 ml 720 ml BalanceBalance 1480 ml 720 ml Exam HEENT exam; supple neck, no JVD. No lymphadenopathy. Midline trachea. No thyromegaly. Patient has fair dentition. Chest exam; decreased breath sounds bilaterally with very minimal expiratory wheezing. S1-S2 audible, no murmurs. Regular rhythm. Abdomen exam; soft, no organomegaly. Bowel sounds audible. Extremity exam; no peripheral edema clubbing. FRONT OFFICE COORDINATOR exam; no focal deficit. Medications Medications Current Medications IV Flush (NS 3 ml) 3 ml PER PROTOCOL IV ; Start 09/06/18 at 21:30 Ondansetron HCl (Zofran Inj) 4 mg Q6H PRN IV NAUSEA AND/OR VOMITING; Start 09/06/18 at 21:30 Acetaminophen (Tylenol Tab) 650 mg Q6H PRN PO PAIN LEVEL 1-3 OR FEVER; Start 09/06/18 at 21:30 Heparin Sodium (Porcine) (Heparin (5000 Units/1ml)) 5,000 unit Q12 SC Last administered on 09/09/18 09:09; Admin Dose 5,000 UNIT; Start 09/07/18 at 09:00 Albuterol/ Ipratropium (Duoneb) 3 ml Q2H RESP THERAPY PRN HHN SHORTNESS OF BREATH Last administered on 09/06/18 23:52; Admin Dose 3 ML; Start 09/06/18 at 21:30 Albuterol (Ventolin Hfa) 2 puff Q4H PRN INH WHEEZING AND SOB; Start 09/06/18 at 21:30 Guaifenesin (Robitussin Liquid Cup) 100 mg Q6 PRN PO COUGH Last administered on 09/08/18 20:43; Admin Dose 100 MG; Start 09/06/18 at 21:30 Levalbuterol (Xopenex Neb) 0.63 mg Q4H RESP THERAPY HHN Last administered on 09/09/18 10:05; Admin Dose 0.63 MG; Start 09/07/18 at 01:00 Ipratropium [place] (Atrovent 0.02% (Neb)) 0.5 mg Q4HWA RESP THERAPY HHN Last administered on 09/09/18 10:05; Admin Dose 0.5 MG; Start 09/07/18 at 09:00 Losartan Potassium (Cozaar) 25 mg DAILY PO Last administered on 09/09/18 09:08; Admin Dose 25 MG; Start 09/08/18 at 09:00 Pantoprazole (Protonix Tab) 40 mg DAILY@06 PO Last administered on 09/09/18 05:40; Admin Dose 40 MG; Start 09/07/18 at 22:30 Al Hydrox/Mg Hydrox/Simethicone (Mag-Al Plus) 30 ml Q4H PRN PO GASTROINTESTINAL UPSET Last administered on 09/08/18 20:43; Admin Dose 30 ML; Start 09/07/18 at 22:30 Azithromycin (Zithromax) 500 mg DAILY PO Last administered on 09/09/18 09:07; Admin Dose 500 MG; Start 09/08/18 at 12:00 Methylprednisolone Sodium Succinate (Solu-Medrol) 40 mg Q6 IV Last administered on 09/09/18at 05:40; Admin Dose 40 MG; Start 09/08/18 at 12:00 Budesonide (Pulmicort (Neb)) 0.5 mg BID RESP THERAPY HHN Last administered on 09/09/18at 10:05; Admin Dose 0.5 MG; Start 09/08/18 at 11:00 Date/Time of Note Date/Time of Note DATE: 09/09/18 TIME: 10:27 NOVA ROSADO Sep 09, 2018 10:28
--- NOTE | 2018-09-09 10:40 | PN ---
Date/Time of Note Date/Time of Note DATE: 09/09/18 TIME: 10:39 Assessment/Plan VTE Prophylaxis Risk score (from Ns)>0 risk: 2 SCD applied (from Ns): Yes Pharmacological prophylaxis: heparin Lines/Catheters IV [facility]from [facility] Saline Lock Assessment/Plan Hospital Course SUBJECTIVE: Dyspnea improved. Continues to have a productive cough. OBJECTIVE: Physical Exam General: Adequately build 57 year-old female lying in bed in no apparent distress. HEENT: Normocephalic, atraumatic. Eyes: Anicteric sclerae, conjunctivae clear. ENT: Nasal septum midline, oral mucosa moist. Neck supple, no JVD noticed. Respiratory: Diminished breath sounds. No use of accessory muscles of respiration. . Cardiovascular: S1, S2 heard. No murmurs or gallops. Abdomen: Soft, nontender, and nondistended. Bowel sounds positive in all 4 quadrants. Genitourinary: Deferred. Extremities: No cyanosis, no clubbing, no edema. Peripheral pulses palpable. Neurologic: Cranial nerves II through XII grossly intact. The patient is awake, alert, and oriented. Skin: Normal skin turgor. No skin rashes. Labs & Vitals per chart ASSESSMENT & PLAN 57-year-old female with comorbidities including asthma, hypertension, and dyslipidemia who came to the emergency room with chief complaint of dyspnea. The patient was initially evaluated at outpatient clinic with minimal improvement in symptoms. Therefore, the patient was admitted to inpatient setting for further treatment and evaluation. 1. Asthma exacerbation. -Continue inhaled bronchodilators and inhaled anticholinergics. -Continue tapering dose of steroids. -Antibiotics for any underlying acute tracheobronchitis. -Pulmonology following. 2. Lactic acidosis. -Most probably type B lactic acidosis. -Possibly secondary to use of inhaled beta agonists. -Trend lactate levels. 3. Essential hypertension. -Continue antihypertensives. 4. Dyslipidemia. -On statins. -Will hold statins, if this is possibly contributing to the patient's underlying lactic acidosis. 5. Fluids, electrolytes, and nutrition. -Low-cholesterol diet. 6. DVT prophylaxis. -Subcutaneous heparin. 7. Plan. -Continue inhaled bronchodilators and anticholinergics. -Continue tapering dose of steroids. -Await clinical improvement. The patient was seen in collaboration with Dr. Christianson. Result Diagram: 09/09/18 0442 09/09/18 0442 Results 24hrs Laboratory Tests Test 09/08/18 15:44 09/09/18 04:42 Lactic Acid Level 4.9 *H 3.7 *H White Blood Count 13.1 #H Red Blood Count 4.07 L Hemoglobin 12.2 Hematocrit 36.9 L Mean Corpuscular Volume 90.7 Mean Corpuscular Hemoglobin 30.0 Mean Corpuscular Hemoglobin Concent 33.1 Red Cell Distribution Width 13.9 Platelet Count 223 Mean Platelet Volume 10.1 Immature Granulocytes % 0.900 H Neutrophils % 88.2 H Lymphocytes % 8.9 L Monocytes % 1.9 Eosinophils % 0.0 Basophils % 0.1 Nucleated Red Blood Cells % 0.0 Immature Granulocytes # 0.120 H Neutrophils # 11.6 H Lymphocytes # 1.2 Monocytes # 0.3 Eosinophils # 0.0 Basophils # 0.0 Nucleated Red Blood Cells # 0.0 Sodium Level 143 Potassium Level 4.3 Chloride Level 106 Carbon Dioxide Level 25 Anion Gap 12 Blood Urea Nitrogen 18 Creatinine 0.73 Est Glomerular Filtrat Rate mL/min > 60 Glucose Level 170 Calcium Level 9.9 Phosphorus Level 3.0 Magnesium Level 2.5 Exam/Review of Systems Vital Signs Vitals Vital Signs Date Temp Pulse Resp B/P (MAP) Pulse Ox O2 O2 Flow FiO2 Time Delivery Rate 09/09/18 92 16 98 Nasal 2.0 10:21 Cannula 09/09/18 98.5 167/80 08:24 (109) 09/07/18 27 20:36 Intake and Output 09/08/18 09/08/18 09/09/18 1515:00 23:00 07:00 IntakeIntake Total 1480 ml 720 ml BalanceBalance 1480 ml 720 ml Medications Medications Current Medications IV Flush (NS 3 ml) 3 ml PER PROTOCOL IV ; Start 09/06/18 at 21:30 Ondansetron HCl (Zofran Inj) 4 mg Q6H PRN IV NAUSEA AND/OR VOMITING; Start 09/06/18 at 21:30 Acetaminophen (Tylenol Tab) 650 mg Q6H PRN PO PAIN LEVEL 1-3 OR FEVER; Start 09/06/18 at 21:30 Heparin Sodium (Porcine) (Heparin (5000 Units/1ml)) 5,000 unit Q12 SC Last administered on 09/09/18at 09:09; Admin Dose 5,000 UNIT; Start 09/07/18 at 09:00 Albuterol/ Ipratropium (Duoneb) 3 ml Q2H RESP THERAPY PRN HHN SHORTNESS OF BREATH Last administered on 09/06/18 23:52; Admin Dose 3 ML; Start 09/06/18 at 21:30 Albuterol (Ventolin Hfa) 2 puff Q4H PRN INH WHEEZING AND SOB; Start 09/06/18 at 21:30 Guaifenesin (Robitussin Liquid Cup) 100 mg Q6 PRN PO COUGH Last administered on 09/08/18 20:43; Admin Dose 100 MG; Start 09/06/18 at 21:30 Levalbuterol (Xopenex Neb) 0.63 mg Q4H RESP THERAPY HHN Last administered on 09/09/18 10:05; Admin Dose 0.63 MG; Start 09/07/18 at 01:00 Ipratropium [place] (Atrovent 0.02% (Neb)) 0.5 mg Q4HWA RESP THERAPY HHN Last administered on 09/09/18 10:05; Admin Dose 0.5 MG; Start 09/07/18 at 09:00 Losartan Potassium (Cozaar) 25 mg DAILY PO Last administered on 09/09/18 09:08; Admin Dose 25 MG; Start 09/08/18 at 09:00 Pantoprazole (Protonix Tab) 40 mg DAILY@06 PO Last administered on 09/09/18 05:40; Admin Dose 40 MG; Start 09/07/18 at 22:30 Al Hydrox/Mg Hydrox/Simethicone (Mag-Al Plus) 30 ml Q4H PRN PO GASTROINTESTINAL UPSET Last administered on 09/08/18 20:43; Admin Dose 30 ML; Start 09/07/18 at 22:30 Azithromycin (Zithromax) 500 mg DAILY PO Last administered on 09/09/18 09:07; Admin Dose 500 MG; Start 09/08/18 at 12:00 Methylprednisolone Sodium Succinate (Solu-Medrol) 40 mg Q6 IV Last administered on 09/09/18 05:40; Admin Dose 40 MG; Start 09/08/18 at 12:00 Budesonide (Pulmicort (Neb)) 0.5 mg BID RESP THERAPY HHN Last administered on 1/23/19at 10:05; Admin Dose 0.5 MG; Start 09/08/18 at 11:00 ROLANDO MONTE NP Sep 09, 2018 10:40
[2018-09-09 13:48] VITALS: BP 128/70; PULSE 98; RESP 18
--- NOTE | 2018-09-09 18:57 | NUR ---
EOSS Pt alert oriented X4, no c/o pain/SOB/distress during the shift. All meds administered at due times. Lactic acid at 5.0, Alex QUALITY TESTER notified by charge nurse Angela, no new orders at this time. Will continue to monitor.
[2018-09-09 19:33] VITALS: BP 144/80; PULSE 98; RESP 18
[2018-09-10] MEDS: METHYLPREDNISOLONE 40 MG INJ IV SCH ×2 (00:07→06:01)
[2018-09-10 02:00] VITALS: BP 139/77; PULSE 84; RESP 18
[2018-09-10] MEDS: LEVALBUTEROL (NEB) 0.63 MG/3 ML AMP HHN SCH ×4 (02:14→20:19)
--- NOTE | 2018-09-10 04:23 | NUR ---
SHIFT REPORT PT STABLE DURING THE NIGHT.NO SIGNIFICANT CHANGE OF CONDITION NOTED.NO SOB,CONTINUE ON BREATHING TREATMENT AND SOLUMEDROL ORDERED.KEEP PT COMFORTABLE,CALL LIGHT AT REACH.NEEDS ATTENDED.HOURLY ROUNDING DONE.
[2018-09-10] MEDS: PANTOPRAZOLE (EC) 40 MG TAB PO SCH (06:01)
[2018-09-10] MEDS: IPRATROPIUM (NEB) 0.5 MG/2.5 ML AMP HHN SCH ×4 (07:55→20:19)
[2018-09-10] MEDS: BUDESONIDE (NEB) 0.5MG/2ML AMP HHN SCH ×2 (07:55→20:00)
--- NOTE | 2018-09-10 08:45 | PN ---
DATE: 09/10/2018 SUBJECTIVE: The patient is stable. No events overnight. OBJECTIVE: VITAL SIGNS: Blood pressure is 139/77, respirations 18, pulse 74, temperature 98.6. HEENT: Head is normocephalic. NECK: Supple. HEART: Regular rate. LUNGS: Show diminished breath sounds at the base. ABDOMEN: Soft, nontender to palpation. No rebound or guarding. EXTREMITIES: Negative for clubbing, cyanosis, no edema. DERMATOLOGIC: No rashes. MUSCULOSKELETAL: No joint effusion. NEUROLOGIC: No change in exam. MEDICATIONS: Reviewed. LABORATORY DATA: Reviewed. Lactic acid level last night was 5.0. ASSESSMENT AND PLAN: 1. Lactic acidosis. Etiology is likely secondary to type B from asthmatic exacerbation in conjuncti on with use of beta adrenergic agonist i.e. albuterol. The patient's lactic acid levels continue to fluctuate. However, the patient is hemodynamically stable without any signs of sepsis or shock. We would therefore continue current treatment plan. Consider de-escalation of bronchodilators if possib le. Additionally, would further undergo age appropriate cancer screening, given the fact that malign ancies may also be a contributor to a type B lactic acidosis. Continue to monitor. 2. Asthma exacerbation. The patient is clinically improving, remains on steroids, bronchodilators. 3. Hypertension. Continue current blood pressure regimen. 4. Dyslipidemia. Continue statin therapy. 5. Gastrointestinal and deep vein thrombosis prophylaxis. Dictated By: HEIDY WEBB DO NR/NTS Conf#: [id number] DID#: [id number] CC: HEIDY WEBB DO; ARAVIND DOUGLAS MD;*EndCC*
[2018-09-10 09:00] VITALS: BP 143/74; PULSE 88; RESP 18
[2018-09-10] MEDS: AZITHROMYCIN 250 MG TAB PO SCH (09:46)
[2018-09-10] MEDS: LOSARTAN 25 MG TAB PO SCH (09:47)
[2018-09-10] MEDS: HEPARIN 5,000 UNIT/1 ML VIAL SC SCH ×2 (09:50→20:42)
--- NOTE | 2018-09-10 09:57 | CONS ---
Assessment/Plan Assessment/Plan Assessment/Plan Assessment and recommendations; 1. Patient admitted with acute bronchitis and URI induced wheezing with marked overall clinical improvement. 2. Stable hypertension. Discontinue Solu-Medrol. Start prednisone 30 mg a day to be tapered down to 0 in the next 3-4 days. Consider discharge in 24 hours, continue Zithromax for 1 additional day. Result Diagram: 09/09/18 0442 09/09/18 0442 Results 24hrs Laboratory Tests Test 09/09/18 11:34 Lactic Acid Level 5.0 *H Consultation Date/Type/Reason Admit Date/Time Sep 06, 2018 at 18:41 Initial Consult Date 09/08/18 Type of Consult Pulmonary Patient is a very pleasant 57-year-old lady who came into the hospital with a 3- month history of coughing chest congestion wheezing and very scant sputum production. According to her she was fine until symptoms started 3 months ago. Patient denies any acute illness like episodes of high fever, body aches myalgias to suggest any viral infection. After being admitted patient has been started on appropriate bronchodilator regimen with significant improvement in symptoms. She still complains of coughing chest congestion. Denies any sinus symptoms, postnasal drip. Any fever or chills. Past medical history; 1. History of hypertension. 2. No history of any asthma. Medications; reviewed. Allergies; none. Social history; no show any smoking. Occupational history; patient is a couture alterations dressmaker. PET/hobbies; patient has a dog in the house. Family history; she is , no show any illnesses in the family. Review of systems; denies any headache, sinus symptoms. Any sore throat. Any chest pain. Denies any wheezing. Complains of cough and chest congestion. Complains of scant white sputum production. Denies any high fever, chills, body aches or myalgias. Denies any abdominal pain, acid reflux. Any diarrhea, melena any urinary symptoms. Any orthopnea. Any edema. Complains of minimal shortness of breath upon exertion. Denies any weight loss. General exam; middle-aged female, awake alert, currently in no distress. 24 HR Interval Summary Free Text/Dictation Patient condition is markedly improved. There is almost complete resolution of wheezing and shortness of breath. Patient complains of very scant cough. General exam; middle-aged female, awake alert, currently no distress. Exam/Review of Systems Vital Signs Vitals Vital Signs Date Temp Pulse Resp B/P (MAP) Pulse Ox O2 O2 Flow FiO2 Time Delivery Rate 09/10/18 84 20 97 Nasal 2.0 08:03 Cannula 09/10/18 98.6 139/77 02:00 (97) 09/09/18 21 13:25 Intake and Output 09/09/18 09/09/18 09/10/18 1515:00 23:00 07:00 IntakeIntake Total 2740 ml 480 ml 360 ml BalanceBalance 2740 ml 480 ml 360 ml Exam H HEENT exam; supple neck, no JVD. No lymphadenopathy. Midline trachea. No thyromegaly. Patient has good dentition. Pharynx is clear. Chest exam; clear to auscultation. S1-S2 audible, no murmurs. Regular rhythm. Abdomen exam; soft, no organomegaly. Bowel sounds audible. Extremity exam; no peripheral edema or clubbing. CAN MAKER exam; no focal deficit. Medications Medications Current Medications IV Flush (NS 3 ml) 3 ml PER PROTOCOL IV ; Start 09/06/18 at 21:30 Ondansetron HCl (Zofran Inj) 4 mg Q6H PRN IV NAUSEA AND/OR VOMITING; Start 09/06/18 at 21:30 Acetaminophen (Tylenol Tab) 650 mg Q6H PRN PO PAIN LEVEL 1-3 OR FEVER; Start 09/06/18 at 21:30 Heparin Sodium (Porcine) (Heparin (5000 Units/1ml)) 5,000 unit Q12 SC Last administered on 09/10/18at 09:50; Admin Dose 5,000 UNIT; Start 09/07/18 at 09:00 Albuterol/ Ipratropium (Duoneb) 3 ml Q2H RESP THERAPY PRN HHN SHORTNESS OF BREATH Last administered on 09/06/18at 23:52; Admin Dose 3 ML; Start 09/06/18 at 21:30 Albuterol (Ventolin Hfa) 2 puff Q4H PRN INH WHEEZING AND SOB; Start 09/06/18 at 21:30 Guaifenesin (Robitussin Liquid Cup) 100 mg Q6 PRN PO COUGH Last administered on 09/08/18at 20:43; Admin Dose 100 MG; Start 09/06/18 at 21:30 Ipratropium [place] (Atrovent 0.02% (Neb)) 0.5 mg Q4HWA RESP THERAPY HHN Last administered on 09/10/18 07:55; Admin Dose 0.5 MG; Start 09/07/18 at 09:00 Losartan Potassium (Cozaar) 25 mg DAILY PO Last administered on 09/10/18 09:47; Admin Dose 25 MG; Start 09/08/18 at 09:00 Pantoprazole (Protonix Tab) 40 mg DAILY@06 PO Last administered on 09/10/18 06:01; Admin Dose 40 MG; Start 09/07/18 at 22:30 Al Hydrox/Mg Hydrox/Simethicone (Mag-Al Plus) 30 ml Q4H PRN PO GASTROINTESTINAL UPSET Last administered on 09/08/18 20:43; Admin Dose 30 ML; Start 09/07/18 at 22:30 Azithromycin (Zithromax) 500 mg DAILY PO Last administered on 09/10/18 09:46; Admin Dose 500 MG; Start 09/08/18 at 12:00 Methylprednisolone Sodium Succinate (Solu-Medrol) 40 mg Q6 IV Last administered on 09/10/18 06:01; Admin Dose 40 MG; Start 09/08/18 at 12:00 Budesonide (Pulmicort (Neb)) 0.5 mg BID RESP THERAPY HHN Last administered on 09/10/18 07:55; Admin Dose 0.5 MG; Start 09/08/18 at 11:00 Levalbuterol (Xopenex Neb) 0.63 mg Q6H RESP THERAPY HHN Last administered on 09/10/18 07:55; Admin Dose 0.63 MG; Start 09/09/18 at 20:00 Date/Time of Note Date/Time of Note DATE: 09/10/18 TIME: 09:55 NOVA ROSADO Sep 10, 2018 09:57
--- NOTE | 2018-09-10 11:40 | NUR ---
DR SOLOMON HERE ON UNIT SPOKE WITH PATIENT NO PLAN FOR DISCHARGE TODAY CONTINUE CURRENT PLAN.
--- NOTE | 2018-09-10 13:01 | PN ---
Date/Time of Note Date/Time of Note DATE: 09/10/18 TIME: 12:56 Assessment/Plan VTE Prophylaxis Risk score (from Ns)>0 risk: 1 SCD applied (from Ns): No SCD contraindicated: low risk/ambulating Pharmacological prophylaxis: NA/contraindicated, heparin Pharm contraindication: low risk/ambulating Lines/Catheters IV [facility]from [facility] Saline Lock Assessment/Plan Hospital Course 57 yo male with asthma exacerbation - BDs, steroid taper - dc home tomorrow Result Diagram: 09/09/18 0442 09/09/18 0442 Results 24hrs Laboratory Tests Test 09/10/18 10:31 Lactic Acid Level 6.2 *H Subjective 24 Hr Interval Summary Free Text/Dictation Doing well, breathing improved Wants to go home tomorrow Exam/Review of Systems Exam Vitals Vital Signs Date Temp Pulse Resp B/P (MAP) Pulse Ox O2 O2 Flow FiO2 Time Delivery Rate 09/10/18 Nasal 2.0 09:30 Cannula 09/10/18 88 18 143/74 95 09:00 (97) 09/10/18 98.6 02:00 09/09/18 21 13:25 Intake and Output 09/09/18 09/09/18 09/10/18 1515:00 23:00 07:00 IntakeIntake Total 2740 ml 480 ml 360 ml BalanceBalance 2740 ml 480 ml 360 ml Constitutional: alert, oriented, well developed Psych: no complaints, nl mood/affect Head: normocephalic, atraumatic Eyes: nl conjunctiva, EOMI, nl lids, nl sclera, PERRL ENMT: nl external ears & nose, nl lips & teeth, nl nasal mucosa & septum Neck: supple, non-tender Respiratory: clear to auscultation, normal air movement Cardiovascular: regular rate and rhythm, nl pulses Gastrointestinal: soft, nl liver, spleen, non-tender Musculoskeletal: nl extremities to inspection, nl gait and stance Extremities: normal pulses Neurological: ADOPTION COORDINATOR II-XII intact, nl mental status, nl speech, nl strength Skin: nl turgor; No rash or lesions Lymph: nl lymph nodes Results Results 24hrs Laboratory Tests Test 09/10/18 10:31 Lactic Acid Level 6.2 *H AVERY CAGLE MD Sep 10, 2018 13:01
[2018-09-10 13:51] VITALS: BP 143/79; PULSE 71; RESP 18
[2018-09-10 19:56] VITALS: BP 134/77; PULSE 85; RESP 18
[2018-09-11] MEDS: LEVALBUTEROL (NEB) 0.63 MG/3 ML AMP HHN SCH ×2 (01:50→10:07)
[2018-09-11 01:59] VITALS: BP 145/74; PULSE 72; RESP 18
--- NOTE | 2018-09-11 05:05 | NUR ---
Shift Summary Patient's condition with no significant and stable vital signs. Otherwise, unremarkble event not noted.
[2018-09-11] MEDS: PANTOPRAZOLE (EC) 40 MG TAB PO SCH (06:20)
[2018-09-11 07:45] VITALS: BP 144/80; PULSE 69; RESP 18
--- NOTE | 2018-09-11 08:39 | PN ---
DATE: 09/11/2018 SUBJECTIVE: The patient continues to complain about wheezing, cough and productive phlegm. OBJECTIVE: VITAL SIGNS: Blood pressure is 144/80, pulse 69, respiration 18, temperature 98.4. HEENT: Head is normocephalic. NECK: Supple. HEART: Regular rate. LUNGS: Show diminished breath sounds at the base. Positive wheezing. ABDOMEN: Soft, nontender to palpation. No rebound or guarding. EXTREMITIES: Negative for clubbing, cyanosis, no edema. DERMATOLOGIC: No rashes. MUSCULOSKELETAL: No joint effusion. NEUROLOGIC: No change in exam. MEDICATIONS: Reviewed. LABORATORY DATA: From 06/10/2018 showed a lactic acid 6.2. ASSESSMENT AND PLAN: 1. Lactic acidosis. Etiology is likely secondary to type B from asthma exacerbation in conjunction with use of beta adrenergic agonist. The patient's lactic acid levels have been fluctuating. The pa tient has no signs of hemodynamic instability. No signs of shock or sepsis. At this point, would co ntinue current treatment plan, would de-escalate bronchodilator if possible. Additionally, would enc ourage the patient to undergo age appropriate cancer screening as malignancy is another cause of a ty pe B lactic acidosis. 2. Asthma exacerbation. Continue current medical management. 3. Hypertension. Continue current treatment plan. 4. Dyslipidemia. Continue statin therapy. 5. Gastrointestinal and deep vein thrombosis prophylaxis. Dictated By: HEIDY WEBB DO NR/NTS Conf#: [id number] DID#: [id number] CC: ARAVIND DOUGLAS MD;*EndCC*
[2018-09-11] MEDS: AZITHROMYCIN 250 MG TAB PO SCH (09:00)
[2018-09-11] MEDS ORDERED: predniSONE 10 MG TAB PO SCH (09:00)
[2018-09-11] MEDS: LOSARTAN 25 MG TAB PO SCH (09:01)
[2018-09-11] MEDS: HEPARIN 5,000 UNIT/1 ML VIAL SC SCH (09:03)
[2018-09-11] MEDS: IPRATROPIUM (NEB) 0.5 MG/2.5 ML AMP HHN SCH (10:07)
[2018-09-11] MEDS: BUDESONIDE (NEB) 0.5MG/2ML AMP HHN SCH (10:07)
[2018-09-11] MEDS ORDERED: BUDE6HFA INHALATION (10:48)
[2018-09-11] MEDS ORDERED: ALBU90AE INHALATION (10:48)
--- NOTE | 2018-09-11 10:53 | PDOCDIS ---
Discharge Instructions DIAGNOSIS Discharge Diagnosis Asthma CONDITION [id number] Patient Condition: [id number] Stable FOLLOW UP/APPOINTMENTS Follow-up Plan Take your inhalers as prescribed You can make an appointment to see Dr Hernandez (motorcycle repair shop supervisor) to manage you asthma his office number is [phone]. You can also see you primary doctor for this. AVERY CAGLE MD Sep 11, 2018 10:53
--- NOTE | 2018-09-11 12:04 | NUR ---
Discharge Notes patient discharged home, all instructions reviewed and understood, family at bedside
--- NOTE | 2018-09-11 13:44 | DS ---
Date/Time of Note Date/Time of Note DATE: 09/11/18 TIME: 13:43 Discharge Summary Admission/Discharge Info Admit Date/Time Sep 06, 2018 at 18:41 Discharge Date/Time Sep 11, 2018 at 11:55 Discharge Diagnosis Asthma Patient Condition: Stable Hospital Course 57 yo female who presented with URI symptoms and SOB CT-PE was negative and showed no infiltrates. Wheezing throughout. Started on steroids and bronchodilators. Symptoms resolved. She was discharged on symbicort inhaler and albuterol PRN. She has no formal diagnosis of ashtma. If symptoms recur or persist she was encouraged to make an appointment [facility] cheesemaking laborer for PFTs. Home Meds Active Scripts Albuterol Sulfate (Proair Respiclick) 90 Mcg Aer.pow.ba, 2 PUFFS INHALATION Q6 PRN for SHORTNESS OF BREATH, #1 BOTTLE 5 Refills Prov:AVERY CAGLE MD 09/11/18 Budesonide-Formoterol Fumarate* (Symbicort*) 160-4.5 Hfa.aer.ad, 2 PUFF INHALATION BID for 30 Days, #1 EACH 2 Refills Prov:AVERY CAGLE MD 09/11/18 Reported Medications Guaifenesin* (Tussin*) 100 Mg/5 Ml Syrup, 100 MG PO Q6 PRN for COUGH, ML 09/06/18 Losartan Potassium* (Losartan Potassium*) 25 Mg Tablet, 25 MG PO DAILY, TAB 09/06/18 Albuterol Sulfate* (Proair HFA*) 8.5 Gm Hfa.aer.ad, 2 PUFF INH Q4H PRN for WHEEZING AND SOB, #1 INHALER 09/06/18 Simvastatin* (Zocor*) 20 Mg Tablet, 20 MG PO QHS, #30 TAB 09/06/18 Discontinued Reported Medications Azithromycin* (Azithromycin*) 250 Mg Tablet, 250 MG PO DAILY, #4 TAB FINISHED 09-05-09/06/18 Follow-up Plan Take your inhalers as prescribed You can make an appointment to see Dr Hernandez (cheesemaking laborer) to manage you asthma his office number is [phone]. You can also see you primary doctor for this. Primary Care Provider Care Physician No Primary Pending Labs Laboratory Tests Test 09/11/18 08:04 Lactic Acid Level 2.0 mmol/L (0.5-2.0) AVERY CAGLE MD Sep 11, 2018 13:44
[2018-09-20] MEDS ORDERED: EPIN0.3P4 INJ (03:57)
== END 2018-09-11 11:55 | disposition home or self-care (01) | DRG 202 ==
LOC: FTE 16:35 → 2NE 18:41
PROVIDERS: ADMIT Internal Medicine; ATTEND Internal Medicine
DX: J45.901 Unspecified asthma with (acute) exacerbation (principal); E87.2 Acidosis; I10 Essential (primary) hypertension; E78.5 Hyperlipidemia, unspecified
CPT/HCPCS: 36415; 36600; 71045; 71275; 80048; 80053; 80061; 81001; 82803; 83605; 83735; 84100; 84484; 85025; 85378; 87040; 87086; 87400; 93005; 94640; 94664; 96374; J1644; J1956; J2920; J2930; J7030; J7040; J7512; Q9967

== ENCOUNTER 2018-12-07 16:08 | Emergency (ER) | payer MEDICAID, OTHER ==
[~2018-12-07] VITALS: Ht 157.5 cm; Wt 63.7 kg
[~2018-12-07 16:08] MED LIST: ALBU8.5H8 INH; ALBU90AE INHALATION; BUDE6HFA INHALATION; EPIN0.3P4 INJ; GUAI-173 PO; LOSA25TA12 PO; SIMV20TA PO
[2018-12-07 16:13] VITALS: BP 132/75; PULSE 99; RESP 20; Ht 157.5 cm; Wt 63.7 kg
--- NOTE | 2018-12-07 16:43 | EN ---
Date/Time of Note Date/Time of Note DATE: 12/07/18 TIME: 16:42 ER Progress Note ED 3 MSE. With patient with history of asthma and wheezing referred by primary doctor. Will require further intervention in ED 2 BETSY BENNETT MD Dec 07, 2018 16:43
[2018-12-07] MEDS ORDERED: DEXAMETHASONE 10 MG/ML 1 ML INJ IM STA (17:29)
[2018-12-07] MEDS ORDERED: ALBUTEROL 0.5% (NEB) 2.5 MG/0.5 ML AMP INH STA ×2 (17:29→18:52)
--- NOTE | 2018-12-07 21:18 | ERD ---
ER Documentation Chief Complaint Chief Complaint cough & asthma, not relief with inhaler use x 5 days HPI This is a 58-year-old female patient who presents to the emergency room with complaint of cough and asthma x 5 days. She has been out of her albuterol and Symbicort for several days. Denies fevers, no nausea, no vomiting, no headaches, no muscle aches. Patient does not smoke. No other chronic medical conditions reported. Patient speaking in full sentences at time of assessment. ROS All systems reviewed and are negative except as per history of present illness. Medications Home Meds Active Scripts Nebulizer (Compact Ultrasonic Nebulizer) 1 Each Each, EACH , #1 Prov:QUENTIN GONZALEZ NP 12/07/18 Ipratropium-Albuterol (Ipratropium-Albuterol) 0.5-3 Mg/3 Ml Ampul.neb, 3 ML INH Q4H PRN for SHORTNESS OF BREATH for 14 Days, #30 AMP Prov:QUENTIN GONZALEZ NP 12/07/18 Albuterol Sulfate* (Proair HFA*) 8.5 Gm Hfa.aer.ad, 2 PUFF INH Q4, #1 INHALER Prov:QUENTIN GONZALEZ NP 12/07/18 Budesonide-Formoterol Fumarate* (Symbicort*) 160-4.5 Hfa.aer.ad, 2 PUFF INHALATION BID, #1 EACH Prov:QUENTIN GONZALEZ NP 12/07/18 Prednisone* (Prednisone*) 20 Mg Tab, 60 MG PO DAILY for 4 Days, TAB Prov:QUENTIN GONZALEZ NP 12/07/18 Epinephrine (Epipen 2-Nick) 0.3 Mg/0.3 Ml Pen.injctr, 1 EA INJ ONCE PRN for ALLERGIC REACTION, #1 EA Prov:VANESSA SANCHEZ MD 09/20/18 Albuterol Sulfate (Proair Respiclick) 90 Mcg Aer.pow.ba, 2 PUFFS INHALATION Q6 PRN for SHORTNESS OF BREATH, #1 BOTTLE 5 Refills Prov:AVERY CAGLE MD 09/11/18 Budesonide-Formoterol Fumarate* (Symbicort*) 160-4.5 Hfa.aer.ad, 2 PUFF INHALATION BID for 30 Days, #1 EACH 2 Refills Prov:AVERY CAGLE MD 09/11/18 Reported Medications Guaifenesin* (Tussin*) 100 Mg/5 Ml Syrup, 100 MG PO Q6 PRN for COUGH, ML 09/06/18 Losartan Potassium* (Losartan Potassium*) 25 Mg Tablet, 25 MG PO DAILY, TAB 09/06/18 Albuterol Sulfate* (Proair HFA*) 8.5 Gm Hfa.aer.ad, 2 PUFF INH Q4H PRN for WHEEZING AND SOB, #1 INHALER 09/06/18 Simvastatin* (Zocor*) 20 Mg Tablet, 20 MG PO QHS, #30 TAB 09/06/18 Allergies Allergies: Coded Allergies: No Known Allergy (Unverified , 09/06/18) PMhx/Soc History of Surgery: Yes (caesearain section x2 ) Anesthesia Reaction: No Hx Neurological Disorder: No Hx Respiratory Disorders: Yes (bronchitis , pna) Hx Cardiac Disorders: Yes (htn , b=hypercholesterol) Hx Psychiatric Problems: No Hx Miscellaneous Medical Probl: No Hx Alcohol Use: No Hx Substance Use: No Hx Tobacco Use: No Smoking Status: Never smoker FmHx Family History: No diabetes, No coronary disease, No other Physical Exam Vitals Vital Signs Date Temp Pulse Resp B/P (MAP) Pulse Ox O2 O2 Flow FiO2 Time Delivery Rate 12/07/18 87 20 97 21 19:09 12/07/18 80 20 99 Nasal 2.0 17:50 Cannula 12/07/18 Nasal 3 17:43 Cannula 12/07/18 99.0 99 20 132/75 93 16:13 (94) Physical Exam Const: No acute distress Head: Atraumatic Eyes: Normal Conjunctiva, PERRL ENT: Normal External Ears, Nose and Mouth. Neck: Full range of motion. No meningismus. Resp: Course inspiratory and expiratory wheeze, incr work of breathing without retractions or tripod Cardio: Regular rate and rhythm, no murmurs Abd: Soft, non tender, non distended. Normal bowel sounds Skin: No petechiae or rashes, pink, warm, dry Back: No midline or flank tenderness Ext: No cyanosis, or edema Neur: Awake and alert Psych: Normal Mood and Affect Results 24 hrs Current Medications Medications Dose Sig/Nat Start Time Status Last (Trade) Ordered Route PRN Stop Time Admin Dose Reason Admin Albuterol 5 mg ONCE STAT 12/07/18 DC 12/07/18 (Proventil INH 17:29 17:50 0.5% (Neb)) 12/07/18 17:31 10 mg ONCE STAT 12/07/18 DC 12/07/18 Dexamethasone IM 17:29 17:38 (Decadron) 12/07/18 17:31 Albuterol 5 mg ONCE STAT 12/07/18 DC 12/07/18 (Proventil INH 18:52 19:06 0.5% (Neb)) 12/07/18 18:53 Procedures/MDM This is a 58-year-old female patient who presents to the emergency room with exacerbation of chronic asthma. ED COURSE: The patient was stable throughout ED course. DIAGNOSTIC IMAGING: not indicated, no fevers, improves with treatment PROCEDURES: None. MEDICATIONS GIVEN: Albuterol, decadron Patient tolerated medication well with no adverse reactions. Patient reported improvement in breathing Reassessment after treatment: 2100: 96% room air, wheezing resolved, respirations nonlabored MDM: This patient has evidence of an acute exacerbation of chronic bronchospastic disease. They have received bronchodilator treatment and have been reassessed with objective improvement noted on exam. They have access to further bronchodilator treatment after discharge and have received additional appropriat e care. They understand that if they do not improve within the next 8-12 hours or have any deterioration that they are to return immediately for reassessment. Patient's respiratory status has stabilized while in the department and is appropriate for outpatient work up. Exam and work up not consistent w/ impending respiratory failure, pneumonia, PE, neoplasm, or cardiovascular collapse. DISPOSITION: The patient has been discharge home to follow-up with community physician. Departure Diagnosis: Primary Impression: Asthma Additional Impression: Asthma with acute exacerbation Condition: Stable Patient Instructions: Asthma Medications, Asthma and Your Child Referrals: [facility] Additional Instructions: Thank you very much for allowing us to participate in your care. Your health and safety is our top priority at [facility]. Call your primary care doctor TOMORROW for an appointment during the next 2-4 days and bring all the information and medications prescribed. Have prescriptions filled and follow precisely the directions on the label. If the symptoms get worse and your provider is unavailable, return to the Emergency Department immediately. TAKE ENTIRE COURSE OF STEROIDS USE SYMBICORT 2 PUFFS IN THE MORNING, 2 PUFFS IN THE EVENING UNTIL YOU ARE NO LONGER WHEEZING, THEN YOU MAY DECREASE TO 1 PUFF IN AM 1 PUFF IN PM USE ALBUTEROL INHALER NEEDED FOR WHEEZING- IF SEVERE WHEEZING AND SHORTNESS OF BREATH, TAKE 2 PUFFS, IF YOU CONTINUE TO WHEEZE, TAKE 2 MORE PUFFS AND CALL 911 USE DUONEB NEBULIZED MEDICATION 2-3 TIMES PER DAY NEEDED FOR WHEEZING AND SHORTNESS OF BREATH YOU NEED TO FOLLOW-UP WITH YOUR DOCTOR FOR REASSESSMENT QUENTIN GONZALEZ NP Dec 07, 2018 21:18
[2018-12-07] MEDS ORDERED: PRED20TA PO (21:19)
[2018-12-07] MEDS ORDERED: NEBU1KIT2 MC (21:20)
[2018-12-07] MEDS ORDERED: BUDE6HFA INHALATION (21:20)
[2018-12-07] MEDS ORDERED: IPRA3AMP29 INH (21:20)
[2018-12-07] MEDS ORDERED: ALBU8.5H8 INH (21:20)
== END 2018-12-07 21:43 | disposition home or self-care (01) ==
LOC: FTE 16:08
DX: J45.901 Unspecified asthma with (acute) exacerbation (principal); I10 Essential (primary) hypertension
CPT/HCPCS: 94644; 94664; 96372; J1100; Z7502; Z7610; 94640